=== PATIENT | female | born 1955 | race Hispanic/Latino ===

== ENCOUNTER 2017-08-22 17:02 | Emergency (ER) | payer MEDICARE ==
[2017-08-22 17:22] LABS: BASOPHILS % (AUTO) 0.6 % (0.0-5.0); EOSINOPHILS % (AUTO) 2.8 % (0.0-8.0); HEMATOCRIT 38.5 % (36-48); MEAN CORPUSCULAR HEMOGLOBIN 27.5 pg (27.0-33.0); MEAN CORPUSCULAR HGB CONC 33.3 g/dL (32.0-36.0); MEAN CORPUSCULAR VOLUME 82.5 fL (79-99); NEUTROPHILS % (AUTO) 75.6 % (40.0-77.0); PLATELET COUNT (AUTO) 220 K/uL (130-400); RED BLOOD CELL COUNT(AUTO) 4.66 MIL/uL (4.00-5.50); RED CELL DISTRIBUTION WIDTH 14.2 % (11.0-15.5); WHITE BLOOD COUNT (AUTO) 12.1 K/uL (4.8-10.8)
[2017-08-22 17:34] LABS: CREATININE 0.7 mg/dL (0.5-1.5)
[2017-08-22] MEDS ORDERED: METOCLOPRAMIDE 10 MG TABLET ONE (17:34)
[2017-08-22] MEDS ORDERED: ONDANSETRON HCL 4 MG/2 ML VIAL ONE (17:34)
[2017-08-22] MEDS ORDERED: DiphenhydrAMINE HCL 50 MG/ML VIAL ONE (17:34)
[2017-08-22 17:38] LABS: ALBUMIN 3.3 g/dL (3.5-5.0); BILIRUBIN,TOTAL 0.4 mg/dL (0.2-1.0); TOTAL PROTEIN, SERUM 7.4 g/dL (6.0-8.3)
[2017-08-22] MEDS ORDERED: PREDNISONE 20 MG TABLET ONE (20:08)
== END 2017-08-22 20:36 | disposition home or self-care (01) ==
LOC: EDH 17:02
DX: M31.6 Other giant cell arteritis (principal); M19.90 Unspecified osteoarthritis, unspecified site; E11.9 Type 2 diabetes mellitus without complications; I10 Essential (primary) hypertension; E78.5 Hyperlipidemia, unspecified
CPT/HCPCS: 36415; 80053; 82150; 83690; 84484; 85025; 85651; 86141; 93005; 96374; 96375; 99285; J1200; J2405

== ENCOUNTER → 2018-05-03 | Outpatient (CLI) | payer MEDICARE | END | disposition home or self-care (01) | LOC: SLP 20:33 | PROVIDERS: ATTEND Internal Medicine Cardiovascular Disease | DX: G47.39 Other sleep apnea (principal) | CPT/HCPCS: 95810 ==

== ENCOUNTER → 2018-05-17 | Outpatient (CLI) | payer MEDICARE | END | disposition home or self-care (01) | LOC: SLP 20:42 | PROVIDERS: ATTEND Internal Medicine Cardiovascular Disease | DX: G47.30 Sleep apnea, unspecified (principal) | CPT/HCPCS: 95811 ==

== ENCOUNTER → 2018-11-01 | Outpatient (CLI) | payer MEDICARE | END | disposition home or self-care (01) | LOC: RAH 10:44 | PROVIDERS: ATTEND Family Medicine | DX: Z12.31 Encounter for screening mammogram for malignant neoplasm of breast (principal) | CPT/HCPCS: 77067 ==

== ENCOUNTER 2018-12-06 08:50 | Inpatient (IN) | payer MEDICARE | END 2018-12-08 19:55 | LOC: DAHIP 08:50 → 4AH 15:07 | PROC: 0SRC0JZ Replacement of Right Knee Joint with Synthetic Substitute, Open Approach (ICD-10-PCS; principal; 2018-12-06 12:30) | DX: M17.11 Unilateral primary osteoarthritis, right knee (principal); Z96.651 Presence of right artificial knee joint ==

== ENCOUNTER 2021-03-25 12:33 | Emergency (ER) | payer OTHER, MEDICARE ==
[~2021-03-25] VITALS: Ht 160 cm; Wt 136.1 kg
[~2021-03-25 12:33] MED LIST: APIX2.5T PO; ASPI-556 PO; CHOL100018 PO; GLIP2.5T PO; HYDR-4457 PO; HYDR25TA PO; LOSA50TA64 PO; METF-446 PO; OMEP20CA12 PO; ROSU10TA28 PO
[2021-03-25 12:55] LABS: APPEARANCE,URINE TURBID (CLEAR); BILIRUBIN,URINE MODERATE (NEGATIVE); GLUCOSE, URINE (UA) 100 mg/dL (NEGATIVE); KETONES,URINE 15 mg/dL (NEGATIVE); LEUKOCYTE ESTERASE ,URINE LARGE (NEGATIVE); NITRATE,URINE POSITIVE (NEGATIVE); OCCULT BLOOD,URINE LARGE (NEGATIVE); PH,URINE 6.5 (5.0-8.0); PROTEIN,URINE >=300 mg/dL (NEGATIVE)
[2021-03-25] MEDS ORDERED: PHENAZOPYRIDINE HCL 200 MG TABLET PO PRN (13:00)
[2021-03-25] MEDS ORDERED: CEFTRIAXONE 1G VIAL IM ONE (13:00)
[2021-03-25 13:06] LABS: COLOR,URINE RED (YELLOW)
[2021-03-25 13:07] LABS: RBC,URINE TNTC /HPF (0-1)
[2021-03-25 13:08] LABS: BACTERIA,URINE Few /HPF (None Seen); SQUAMOUS EPITHELIAL CELL,UR Rare /HPF (0-2); WBC,URINE >100 /HPF (0-1)
[2021-03-25] MEDS ORDERED: CEPH500B PO (13:23)
[2021-03-25] MEDS ORDERED: PHEN-847 PO (13:23)
[2021-03-25 13:30] VITALS: BP 148/86
[2021-03-25] MEDS ORDERED: LIDOCAINE HCL-MPF 1% 2ML VIAL ONE (13:30)
== END 2021-03-25 13:40 | disposition home or self-care (01) ==
LOC: EDH 12:33
DX: N39.0 Urinary tract infection, site not specified (principal); I10 Essential (primary) hypertension; E66.9 Obesity, unspecified; E11.9 Type 2 diabetes mellitus without complications; E78.5 Hyperlipidemia, unspecified; Z79.899 Other long term (current) drug therapy; Z68.43 Body mass index [BMI] 50.0-59.9, adult
CPT/HCPCS: 81001; 87077; 87088; 87186; 96372; 99283; J0696; J3490

== ENCOUNTER → 2023-02-02 | Outpatient (CLI) | payer OTHER ==
[~2023-02-02] MED LIST changes: +CEPH500B PO; +PHEN-847 PO
== END | disposition home or self-care (01) ==
LOC: RAH 11:42
PROVIDERS: ATTEND Family Medicine
DX: Z12.31 Encounter for screening mammogram for malignant neoplasm of breast (principal)
CPT/HCPCS: 77067

== ENCOUNTER 2023-08-29 10:59 | Emergency (ER) | payer OTHER ==
[~2023-08-29] VITALS: Ht 160 cm; Wt 126.6 kg
[2023-08-29 11:51] VITALS: BP 121/73; PULSE 109; RESP 16
[2023-08-29 13:40] LABS: APPEARANCE,URINE TURBID (CLEAR); BILIRUBIN,URINE MODERATE mg/dL (NEGATIVE); COLOR,URINE YELLOW (YELLOW); GLUCOSE, URINE (UA) NEGATIVE (NEGATIVE); KETONES,URINE 5 mg/dL (NEGATIVE); LEUKOCYTE ESTERASE ,URINE LARGE Leu/uL (NEGATIVE); NITRATE,URINE NEGATIVE (NEGATIVE); OCCULT BLOOD,URINE LARGE (NEGATIVE); PH,URINE 5.5 (5.0-8.0); PROTEIN,URINE 100 mg/dL (NEGATIVE)
[2023-08-29] MEDS ORDERED: AMOX1TAB16 PO (13:41)
[2023-08-29] MEDS ORDERED: IBUP-2077 PO (13:41)
[2023-08-29] MEDS ORDERED: PHEN-776 PO (13:41)
[2023-08-29 14:02] LABS: ADD UA MICROSCOPIC YES
[2023-08-29 14:03] LABS: BACTERIA,URINE MANY /HPF (None Seen); RBC,URINE TNTC /HPF (0-1); WBC,URINE TNTC /HPF (0-1)
[2023-08-29] MEDS: ACETAMINOPHEN 500 MG TABLET PO ONE (14:55)
[2023-08-29] MEDS: AMOX/CLAV 875/125MG TAB PO ONE (14:55)
== END 2023-08-29 14:56 | disposition home or self-care (01) ==
LOC: EDH 10:59
DX: N30.01 Acute cystitis with hematuria (principal); E11.9 Type 2 diabetes mellitus without complications; E66.9 Obesity, unspecified; E78.00 Pure hypercholesterolemia, unspecified; I10 Essential (primary) hypertension; Z79.01 Long term (current) use of anticoagulants; Z79.82 Long term (current) use of aspirin; Z79.84 Long term (current) use of oral hypoglycemic drugs; Z79.899 Other long term (current) drug therapy
CPT/HCPCS: 81001; 87077; 87088; 87186

== ENCOUNTER 2023-12-19 01:53 | Emergency (ER) | payer OTHER ==
[~2023-12-19] VITALS: Ht 160 cm; Wt 127.0 kg
[~2023-12-19 01:53] MED LIST changes: +AMOX1TAB16 PO; +IBUP-2077 PO; +PHEN-776 PO; -ROSU10TA28 PO; +ROSU10TA72 PO
[2023-12-19 02:36] LABS: APPEARANCE,URINE CLOUDY (CLEAR); BILIRUBIN,URINE NEGATIVE (NEGATIVE); COLOR,URINE LIGHT-YELLOW (YELLOW); GLUCOSE, URINE (UA) NEGATIVE (NEGATIVE); KETONES,URINE NEGATIVE (NEGATIVE); LEUKOCYTE ESTERASE ,URINE 500 Leu/uL (NEGATIVE); MUCUS,URINE RARE LPF (None Seen); NITRATE,URINE NEGATIVE (NEGATIVE); OCCULT BLOOD,URINE LARGE (NEGATIVE); PH,URINE 5.5 (5.0-8.0); PROTEIN,URINE 30 mg/dL (NEGATIVE); RBC,URINE 51-100 /HPF (0-1); SQUAMOUS EPITHELIAL CELL,UR MOD /HPF (0-2); UROBILINOGEN,URINE 0.2 mg/dL (0.2-1.0); WBC,URINE >100 /HPF (0-1)
[2023-12-19 02:54] LABS: BASOPHILS # (AUTO) 0.06 K/uL (0.00-0.20); BASOPHILS % (AUTO) 0.5 % (0.0-5.0); EOSINOPHILS # (AUTO) 0.23 K/uL (0.00-0.70); EOSINOPHILS % (AUTO) 1.9 % (0.0-8.0); HEMATOCRIT 40.3 % (36-48); IMMATURE GRANULOCYTE ABSOLUTE 0.04 K/uL (0-1); LYMPHOCYTES # (AUTO) 1.8 K/uL (1.0-4.8); MEAN CORPUSCULAR HEMOGLOBIN 28.5 pg (27.0-33.0); MEAN CORPUSCULAR VOLUME 86.5 fL (79-99); MONOCYTES # (AUTO) 0.5 K/uL (0.1-1.0); MONOCYTES % (AUTO) 4.3 % (3.0-13.0); NEUTROPHILS # (AUTO) 9.2 K/uL (1.8-7.7); PLATELET COUNT (AUTO) 228 K/uL (130-400); RED BLOOD CELL COUNT(AUTO) 4.66 MIL/uL (4.00-5.50); RED CELL DISTRIBUTION WIDTH 13.3 % (11.0-15.5); WHITE BLOOD COUNT (AUTO) 11.8 K/uL (4.8-10.8)
[2023-12-19 03:06] LABS: CREATININE 1.5 mg/dL (0.5-1.0)
[2023-12-19 03:11] LABS: ALBUMIN 3.6 g/dL (3.5-5.0); BILIRUBIN,TOTAL 0.4 mg/dL (0.2-1.0); TOTAL PROTEIN, SERUM 7.9 g/dL (6.0-8.3)
[2023-12-19] MEDS: HYDROMORPHONE 1 MG INJ IVP ONE (04:26)
[2023-12-19] MEDS: INSULIN GLARGINE 100 UNITS/ML 10 ML VIAL SQ ONE (05:12)
[2023-12-19 05:59] VITALS: BP 168/69; PULSE 66; RESP 18; O2SAT 97
== END 2023-12-19 06:01 | disposition home or self-care (01) ==
LOC: EDH 01:53
DX: K59.01 Slow transit constipation (principal); E66.9 Obesity, unspecified; I10 Essential (primary) hypertension; E11.9 Type 2 diabetes mellitus without complications; M19.90 Unspecified osteoarthritis, unspecified site; Z79.82 Long term (current) use of aspirin; Z79.84 Long term (current) use of oral hypoglycemic drugs; Z79.899 Other long term (current) drug therapy; Z98.890 Other specified postprocedural states
CPT/HCPCS: 99285; 74176; 96374; 80053; 83690; 85025; 87077; 87088; 87186; 82948; 81001 ×2; 36415; J1170

== ENCOUNTER 2023-12-20 20:43 | Inpatient (IN) | payer OTHER ==
[~2023-12-20] VITALS: Ht 160 cm; Wt 125.1 kg
[2023-12-20 21:09] LABS: BASOPHILS # (AUTO) 0.04 K/uL (0.00-0.20); BASOPHILS % (AUTO) 0.3 % (0.0-5.0); EOSINOPHILS # (AUTO) 0.02 K/uL (0.00-0.70); EOSINOPHILS % (AUTO) 0.2 % (0.0-8.0); HEMATOCRIT 40.3 % (36-48); IMMATURE GRANULOCYTE ABSOLUTE 0.05 K/uL (0-1); LYMPHOCYTES # (AUTO) 2.2 K/uL (1.0-4.8); LYMPHOCYTES % (AUTO) 18.8 % (21.0-51.0); MEAN CORPUSCULAR HEMOGLOBIN 28.7 pg (27.0-33.0); MEAN CORPUSCULAR HGB CONC 32.8 g/dL (32.0-36.0); MEAN CORPUSCULAR VOLUME 87.6 fL (79-99); MONOCYTES # (AUTO) 0.1 K/uL (0.1-1.0); NEUTROPHILS # (AUTO) 9.2 K/uL (1.8-7.7); NEUTROPHILS % (AUTO) 79.3 % (40.0-77.0); PLATELET COUNT (AUTO) 208 K/uL (130-400); RED CELL DISTRIBUTION WIDTH 13.6 % (11.0-15.5); WHITE BLOOD COUNT (AUTO) 11.6 K/uL (4.8-10.8)
[2023-12-20] MEDS: ACETAMINOPHEN 500 MG TABLET PO STA (21:12)
[2023-12-20 21:22] LABS: CREATININE 1.3 mg/dL (0.5-1.0); POTASSIUM 4.6 mmol/L (3.5-5.1)
[2023-12-20] MEDS: 0.9%NACL 1000ML 1,572 ML IV ONE (21:31)
[2023-12-20 21:32] LABS: APPEARANCE,URINE CLOUDY (CLEAR); BILIRUBIN,URINE NEGATIVE (NEGATIVE); COLOR,URINE YELLOW (YELLOW); GLUCOSE, URINE (UA) 50 mg/dL (NEGATIVE); KETONES,URINE 5 mg/dL (NEGATIVE); LEUKOCYTE ESTERASE ,URINE 500 Leu/uL (NEGATIVE); NITRATE,URINE NEGATIVE (NEGATIVE); OCCULT BLOOD,URINE LARGE (NEGATIVE); PROTEIN,URINE 300 mg/dL (NEGATIVE); UROBILINOGEN,URINE 0.2 mg/dL (0.2-1.0)
[2023-12-20 21:36] LABS: ALBUMIN 3.2 g/dL (3.5-5.0); BILIRUBIN,TOTAL 1.3 mg/dL (0.2-1.0); TOTAL PROTEIN, SERUM 7.9 g/dL (6.0-8.3)
[2023-12-20 21:37] LABS: ADD UA MICROSCOPIC YES
[2023-12-20 21:51] LABS: MUCUS,URINE RARE LPF (None Seen); OTHER CASTS, URINE 3 /LPF (None Seen); RBC,URINE TNTC /HPF (0-1); SQUAMOUS EPITHELIAL CELL,UR RARE /HPF (0-2); WBC,URINE TNTC /HPF (0-1)
[2023-12-20] MEDS ORDERED: VANCOMYCIN PROTOCOL PER PHARMACY IV SCH (23:30)
[2023-12-20 23:46] LABS: ABG BASE EXCESS -6.4 mmol/L (-2.0-3.0); ABG HCO3 15.3 mmol/L (21.0-28.0); ABG OXYGEN SATURATION 97.4 % (95.0-99.0); ABG PCO2 23 mmHg (32-45); ABG PH 7.449 (7.35-7.450); PO2, ARTERIAL BG 90.7 mmHg (83.0-108.0); VENT MODE, BG NC (ROOM AIR)
[2023-12-20] MEDS: CEFEPIME HCL 2 GM VIAL IVPB SCH (23:48)
[2023-12-20] MEDS: 0.9%NACL 1000ML 1,000 ML IV SCH (23:55)
[2023-12-21] VITALS (55 sets, daily range): BP systolic 86–157; BP diastolic 36–101; PULSE 71–139; RESP 16–67; O2SAT 95–98
[2023-12-21] MEDS ORDERED: PHARMACY COMMUNICATION MISC SCH
[2023-12-21] MEDS: VANCOMYCIN 1.5 GM/250 ML BAG 250 ML IV SCH (00:10)
[2023-12-21] MEDS: INSULIN REGULAR, HUMAN 3ML 100 UNIT in 0.9%NACL 100ML 100 ML IV SCH (00:15)
[2023-12-21 00:33] LABS: CREATININE 1.9 mg/dL (0.5-1.0); POTASSIUM 3.1 mmol/L (3.5-5.1)
[2023-12-21] MEDS: VANCOMYCIN 2GM/500 ML BAG 500 ML IV ONE (00:50)
[2023-12-21 01:19] LABS: INFLUENZA TYPE A Negative For Type A (NEGATIVE); INFLUENZA TYPE B Negative For Type B (NEGATIVE)
[2023-12-21] MEDS: POTASSIUM CHLORIDE 10MEQ/100ML 100 ML IV PRN (01:34)
[2023-12-21 01:54] LABS: SARS-CoV-2, RNA, NAAT NEGATIVE SARS CoV-2 (NEGATIVE)
[2023-12-21] MEDS ORDERED: PHENYLEPHRINE HCL 10 MG in 0.9% NACL 250ML 250 ML IV PRN (02:00)
[2023-12-21] MEDS: D5W-1/2 NS/20MEQ KCL 1,000 ML IV SCH (02:50)
[2023-12-21 03:46] LABS: POTASSIUM 3.3 mmol/L (3.5-5.1)
[2023-12-21] MEDS: MAGNESIUM 2GM PREMIX 50ML 50 ML IV SCH (04:00)
[2023-12-21] MEDS ORDERED: POTASSIUM CHLORIDE 10MEQ/100ML 100 ML IV PRN (04:30)
[2023-12-21] MEDS ORDERED: TEMAZEPAM 15 MG CAPSULE PO PRN (05:30)
[2023-12-21] MEDS ORDERED: LACTULOSE 20 GM/30 ML UDCUP PO PRN (05:30)
[2023-12-21] MEDS ORDERED: DOCUSATE SODIUM 100 MG CAP PO PRN (05:30)
[2023-12-21] MEDS ORDERED: ACETAMINOPHEN 650 MG SUPPOSITORY RC PRN (05:30)
[2023-12-21 06:04] LABS: BASOPHILS # (AUTO) 0.06 K/uL (0.00-0.20); BASOPHILS % (AUTO) 0.3 % (0.0-5.0); EOSINOPHILS # (AUTO) 0.01 K/uL (0.00-0.70); EOSINOPHILS % (AUTO) 0.1 % (0.0-8.0); HEMATOCRIT 34.7 % (36-48); IMMATURE GRANULOCYTE ABSOLUTE 0.24 K/uL (0-1); LYMPHOCYTES # (AUTO) 0.7 K/uL (1.0-4.8); LYMPHOCYTES % (AUTO) 3.5 % (21.0-51.0); MEAN CORPUSCULAR HEMOGLOBIN 28.5 pg (27.0-33.0); MEAN CORPUSCULAR HGB CONC 32.3 g/dL (32.0-36.0); MEAN CORPUSCULAR VOLUME 88.3 fL (79-99); MONOCYTES # (AUTO) 1.3 K/uL (0.1-1.0); MONOCYTES % (AUTO) 6.8 % (3.0-13.0); NEUTROPHILS # (AUTO) 17.2 K/uL (1.8-7.7); NEUTROPHILS % (AUTO) 88.1 % (40.0-77.0); PLATELET COUNT (AUTO) 159 K/uL (130-400); RED BLOOD CELL COUNT(AUTO) 3.93 MIL/uL (4.00-5.50); RED CELL DISTRIBUTION WIDTH 13.7 % (11.0-15.5); WHITE BLOOD COUNT (AUTO) 19.6 K/uL (4.8-10.8)
[2023-12-21 06:19] LABS: WBC MORPHOLOGY CONSISTENT W/DIFF
[2023-12-21 06:23] LABS: MAGNESIUM 1.2 mg/dL (1.80-2.40); PHOSPHORUS 1.6 mg/dL (2.5-4.9); THYROID STIMULATING HORMONE 3.42 uIU/mL (0.36-3.74)
[2023-12-21] MEDS: ASPIRIN 81MG CHEW TAB PO SCH (07:59)
[2023-12-21] MEDS: ENOXAPARIN SODIUM 40 MG/0.4 ML SYRINGE SQ SCH (08:01)
[2023-12-21 08:21] LABS: CREATININE 1.8 mg/dL (0.5-1.0); POTASSIUM 4.3 mmol/L (3.5-5.1)
[2023-12-21] MEDS ORDERED: COMPOUND IV MISC 1 EACH IVSOLN MISC PRN (08:30)
[2023-12-21] MEDS ORDERED: COMPOUND IV REFRIGERATED 1 EACH IVSOLN MISC PRN (08:30)
[2023-12-21] MEDS: 0.9%NACL 1000ML 525 ML IV ONE (09:02)
[2023-12-21] MEDS: INSULIN GLARGINE 100 UNITS/ML 10 ML VIAL SQ SCH (09:02)
[2023-12-21] MEDS: MEROPENEM 1 GM in 0.9%NACL 100ML 100 ML IV SCH (09:10)
[2023-12-21] MEDS: INSULIN HUMULIN R 100 UNIT/ML 3ML SQ SCH (11:59)
[2023-12-21] MEDS: ONDANSETRON 4MG INJ IVP PRN (13:16)
[2023-12-21] MEDS: ACETAMINOPHEN 325 MG TAB PO PRN ×2 (13:33→23:00)
[2023-12-21 13:57] LABS: ABG BASE EXCESS -8.7 mmol/L (-2.0-3.0); ABG HCO3 14.1 mmol/L (21.0-28.0); ABG OXYGEN SATURATION 94.5 % (95.0-99.0); ABG PCO2 23 mmHg (32-45); ABG PH 7.401 (7.35-7.450); CARBON MONOXIDE 0.5; HHb 5.5; PO2, ARTERIAL BG 72.3 mmHg (83.0-108.0); VENT MODE, BG NC (ROOM AIR)
[2023-12-21] MEDS: 0.9%NACL 1000ML 1,000 ML IV ONE (14:34)
[2023-12-21] MEDS: INSULIN REGULAR, HUMAN 3ML 100 UNIT in 0.9%NACL 100ML 99 ML IV SCH (14:37)
[2023-12-21 19:00] LABS: CREATININE 1.6 mg/dL (0.5-1.0); POTASSIUM 4.2 mmol/L (3.5-5.1)
[2023-12-21 22:43] LABS: ABG BASE EXCESS -12.4 mmol/L (-2.0-3.0); ABG HCO3 15.1 mmol/L (21.0-28.0); ABG PCO2 40 mmHg (32-45); ABG PH 7.195 (7.35-7.450); CARBON MONOXIDE 0.3; PO2, ARTERIAL BG 209.9 mmHg (83.0-108.0); VENT MODE, BG NRB (ROOM AIR)
[2023-12-21 22:50] LABS: CREATININE 1.7 mg/dL (0.5-1.0)
[2023-12-21] MEDS: SODIUM BICARB 50MEQ 50ML VIAL IV ONE (23:30)
[2023-12-22] VITALS (63 sets, daily range): BP systolic 80–177; BP diastolic 32–115; PULSE 83–131; RESP 8–37; O2SAT 98–99
[2023-12-22] MEDS: SODIUM BICARB 50MEQ 50ML VIAL 100 ML ONE (00:36)
[2023-12-22 00:58] LABS: ABG BASE EXCESS -6.3 mmol/L (-2.0-3.0); ABG HCO3 17.1 mmol/L (21.0-28.0); ABG OXYGEN SATURATION 95.6 % (95.0-99.0); ABG PCO2 28 mmHg (32-45); ABG PH 7.403 (7.35-7.450); CARBON MONOXIDE 0.2; HHb 4.4; PO2, ARTERIAL BG 82.8 mmHg (83.0-108.0); VENT MODE, BG NC (ROOM AIR)
[2023-12-22] MEDS: KETOROLAC 30MG VIAL (30MG/ML) IVP ONE (01:10)
[2023-12-22 02:58] LABS: CREATININE 1.7 mg/dL (0.5-1.0); POTASSIUM 4.1 mmol/L (3.5-5.1)
[2023-12-22 06:49] LABS: CREATININE 1.6 mg/dL (0.5-1.0); POTASSIUM 5.3 mmol/L (3.5-5.1)
[2023-12-22 08:14] LABS: BASOPHILS # (AUTO) 0.04 K/uL (0.00-0.20); BASOPHILS % (AUTO) 0.3 % (0.0-5.0); EOSINOPHILS # (AUTO) 0.02 K/uL (0.00-0.70); EOSINOPHILS % (AUTO) 0.2 % (0.0-8.0); HEMATOCRIT 35.4 % (36-48); IMMATURE GRANULOCYTE ABSOLUTE 0.07 K/uL (0-1); LYMPHOCYTES # (AUTO) 0.6 K/uL (1.0-4.8); LYMPHOCYTES % (AUTO) 4.9 % (21.0-51.0); MEAN CORPUSCULAR HEMOGLOBIN 28.3 pg (27.0-33.0); MEAN CORPUSCULAR HGB CONC 32.2 g/dL (32.0-36.0); MEAN CORPUSCULAR VOLUME 87.8 fL (79-99); MONOCYTES # (AUTO) 1.1 K/uL (0.1-1.0); MONOCYTES % (AUTO) 8.7 % (3.0-13.0); NEUTROPHILS # (AUTO) 11.1 K/uL (1.8-7.7); NEUTROPHILS % (AUTO) 85.4 % (40.0-77.0); PLATELET COUNT (AUTO) 104 K/uL (130-400); RED BLOOD CELL COUNT(AUTO) 4.03 MIL/uL (4.00-5.50)
[2023-12-22 08:31] LABS: ALBUMIN 2.2 g/dL (3.5-5.0); BILIRUBIN,DIRECT 0.3 mg/dL (0.0-0.3); BILIRUBIN,TOTAL 0.7 mg/dL (0.2-1.0); TOTAL PROTEIN, SERUM 6.4 g/dL (6.0-8.3)
[2023-12-22 11:24] LABS: CREATININE 1.5 mg/dL (0.5-1.0); POTASSIUM 4.6 mmol/L (3.5-5.1)
[2023-12-22] MEDS: INSULIN HUMULIN R 100 UNIT/ML 3ML SQ SCH (11:25)
[2023-12-22 15:20] LABS: CREATININE 1.4 mg/dL (0.5-1.0); POTASSIUM 4.5 mmol/L (3.5-5.1)
[2023-12-22 17:40] LABS: CREATININE,URINE RANDOM 118.7 mg/dL (30-135)
[2023-12-22] MEDS ORDERED: ASPI-1197 PO (18:32)
[2023-12-22] MEDS ORDERED: HYDR25TA PO (18:32)
[2023-12-22] MEDS ORDERED: OMEG12002 PO (18:32)
[2023-12-22] MEDS ORDERED: ROSU10TA72 PO (18:32)
[2023-12-22] MEDS ORDERED: LOSA100T59 PO (18:32)
[2023-12-22] MEDS ORDERED: NAPR-1141 PO (18:32)
[2023-12-22] MEDS ORDERED: ACET-2893 PO (18:32)
[2023-12-22] MEDS ORDERED: GLIP-162 PO (18:32)
[2023-12-22] MEDS ORDERED: MULT12TA PO (18:32)
[2023-12-22] MEDS ORDERED: METF-446 PO (18:32)
[2023-12-22 19:38] LABS: CREATININE 1.3 mg/dL (0.5-1.0); POTASSIUM 4.1 mmol/L (3.5-5.1)
[2023-12-22 23:22] LABS: CREATININE 1.2 mg/dL (0.5-1.0); POTASSIUM 4.1 mmol/L (3.5-5.1)
[2023-12-23] VITALS (69 sets, daily range): BP systolic 94–160; BP diastolic 39–100; PULSE 76–160; RESP 14–36; TEMP 98.3; O2SAT 96–100
[2023-12-23 05:15] LABS: HEMATOCRIT 34.1 % (36-48); MEAN CORPUSCULAR HEMOGLOBIN 28.2 pg (27.0-33.0); MEAN CORPUSCULAR VOLUME 88.3 fL (79-99); PLATELET COUNT (AUTO) 124 K/uL (130-400); RED BLOOD CELL COUNT(AUTO) 3.86 MIL/uL (4.00-5.50); RED CELL DISTRIBUTION WIDTH 14.1 % (11.0-15.5); WHITE BLOOD COUNT (AUTO) 12.4 K/uL (4.8-10.8)
[2023-12-23 05:38] LABS: POTASSIUM 5.1 mmol/L (3.5-5.1)
[2023-12-23 06:35] LABS: BAND NEUTROPHILS % (MANUAL) 22 % (0-2); EOSINOPHILS % (MANUAL) 1 % (1-6); LYMPHOCYTES % (MANUAL) 2 % (22-44); MONOCYTES % (MANUAL) 2 % (2-9); SEGMENTED NEUTROPHILS % 73 % (40-70); TOTAL CELLS COUNTED 100
[2023-12-23 06:36] LABS: MAN.DIFF COMMENT-IMPRESSION MANUAL DIFFERENTIAL; PLATELET MORPHOLOGY COMMENT ADEQUATE; WBC MORPHOLOGY VACUOLATION 1+
[2023-12-23 07:16] LABS: PROTEIN,URINE RANDOM 86.8 mg/dL (0-11.9)
[2023-12-23 08:53] LABS: APPEARANCE,URINE CLOUDY (CLEAR); BILIRUBIN,URINE NEGATIVE (NEGATIVE); COLOR,URINE YELLOW (YELLOW); GLUCOSE, URINE (UA) NEGATIVE (NEGATIVE); KETONES,URINE 10 mg/dL (NEGATIVE); LEUKOCYTE ESTERASE ,URINE 250 Leu/uL (NEGATIVE); NITRATE,URINE NEGATIVE (NEGATIVE); OCCULT BLOOD,URINE MODERATE (NEGATIVE); PH,URINE 5.5 (5.0-8.0); PROTEIN,URINE 30 mg/dL (NEGATIVE); UROBILINOGEN,URINE 0.2 mg/dL (0.2-1.0)
[2023-12-23 08:56] LABS: ADD UA MICROSCOPIC YES
[2023-12-23 09:49] LABS: BACTERIA,URINE Rare /HPF (None Seen); SQUAMOUS EPITHELIAL CELL,UR Rare /HPF (0-2); WBC,URINE 0-1 /HPF (0-1)
[2023-12-23] MEDS ORDERED: MAGNESIUM 2GM PREMIX 50ML 50 ML IV PRN (10:00)
[2023-12-23 11:14] LABS: ABG BASE EXCESS -6.4 mmol/L (-2.0-3.0); ABG HCO3 16.7 mmol/L (21.0-28.0); ABG OXYGEN SATURATION 98.6 % (95.0-99.0); ABG PCO2 27 mmHg (32-45); ABG PH 7.411 (7.35-7.450); CARBON MONOXIDE 0.3; DEVICE COMMENT RR, MARY,RN; HHb 1.4; PO2, ARTERIAL BG 132.9 mmHg (83.0-108.0); VENT MODE, BG NRBM (ROOM AIR)
[2023-12-23 12:05] LABS: INR 0.98 (0.85-1.15); PARTIAL THROMBOPLASTIN TIME 28.6 SEC (26.3-35.5); PROTHROMBIN TIME 10.4 SEC (9.6-11.6)
[2023-12-23] MEDS: SODIUM BICARB 50MEQ 50ML VIAL IV ONE (12:22)
[2023-12-23] MEDS: METOPROLOL TARTRATE 1 MG/ML 5ML VIAL IV ONE (13:00)
[2023-12-23] MEDS ORDERED: METOPROLOL TARTRATE 1 MG/ML 5ML VIAL IV PRN (13:00)
[2023-12-23] MEDS: FUROSEMIDE 20MG VIAL IV STA (13:01)
[2023-12-23] MEDS: CEFTRIAXONE 2GM VIAL IVPB SCH (13:02)
[2023-12-23 14:35] LABS: INR 1.45 (0.85-1.15); PARTIAL THROMBOPLASTIN TIME 51.1 SEC (26.3-35.5)
[2023-12-23] MEDS ORDERED: IOHEXOL 350 MG/ML 100ML INFUS..BTL IV ONE (23:57)
[2023-12-24] VITALS (39 sets, daily range): BP systolic 74–149; BP diastolic 31–86; PULSE 69–90; RESP 11–28; O2SAT 96–99
[2023-12-24 04:43] LABS: HEMATOCRIT 31.2 % (36-48); MEAN CORPUSCULAR HEMOGLOBIN 27.8 pg (27.0-33.0); MEAN CORPUSCULAR HGB CONC 32.7 g/dL (32.0-36.0); RED BLOOD CELL COUNT(AUTO) 3.67 MIL/uL (4.00-5.50); RED CELL DISTRIBUTION WIDTH 13.9 % (11.0-15.5); WHITE BLOOD COUNT (AUTO) 7.8 K/uL (4.8-10.8)
[2023-12-24 05:13] LABS: ALBUMIN 1.8 g/dL (3.5-5.0); BILIRUBIN,TOTAL 0.4 mg/dL (0.2-1.0); CREATININE 1.2 mg/dL (0.5-1.0); PHOSPHORUS 3.1 mg/dL (2.5-4.9); TOTAL PROTEIN, SERUM 5.8 g/dL (6.0-8.3)
[2023-12-24] MEDS: 0.9%NACL 10ML VIAL IV SCH (09:00)
[2023-12-24] MEDS: MEROPENEM 1 GM in 0.9%NACL 100ML 100 ML IV SCH (14:30)
[2023-12-24] MEDS: FUROSEMIDE 20 MG TABLET PO SCH (19:29)
[2023-12-25] VITALS (12 sets, daily range): BP systolic 123–146; BP diastolic 68–80; PULSE 71–89; RESP 16–23; O2SAT 96–99
[2023-12-25 04:30] LABS: BASOPHILS # (AUTO) 0.02 K/uL (0.00-0.20); BASOPHILS % (AUTO) 0.2 % (0.0-5.0); EOSINOPHILS # (AUTO) 0.08 K/uL (0.00-0.70); EOSINOPHILS % (AUTO) 0.8 % (0.0-8.0); HEMATOCRIT 30.3 % (36-48); IMMATURE GRANULOCYTE ABSOLUTE 0.06 K/uL (0-1); LYMPHOCYTES # (AUTO) 0.9 K/uL (1.0-4.8); LYMPHOCYTES % (AUTO) 8.8 % (21.0-51.0); MEAN CORPUSCULAR HEMOGLOBIN 28.3 pg (27.0-33.0); MEAN CORPUSCULAR HGB CONC 32.7 g/dL (32.0-36.0); MEAN CORPUSCULAR VOLUME 86.6 fL (79-99); MONOCYTES # (AUTO) 1.1 K/uL (0.1-1.0); NEUTROPHILS # (AUTO) 7.6 K/uL (1.8-7.7); NEUTROPHILS % (AUTO) 78.6 % (40.0-77.0); PLATELET COUNT (AUTO) 94 K/uL (130-400); WHITE BLOOD COUNT (AUTO) 9.7 K/uL (4.8-10.8)
[2023-12-25 04:57] LABS: ALBUMIN 1.7 g/dL (3.5-5.0); BILIRUBIN,TOTAL 0.5 mg/dL (0.2-1.0); CREATININE 1.1 mg/dL (0.5-1.0); POTASSIUM 3.3 mmol/L (3.5-5.1); TOTAL PROTEIN, SERUM 5.7 g/dL (6.0-8.3)
[2023-12-25] MEDS: PANTOPRAZOLE 40 MG/VIAL IVP SCH (10:11)
[2023-12-25] MEDS: POTASSIUM CHLORIDE 10% ELIXIR 20 MEQ/15 ML UDCUP PO PRN (10:21)
[2023-12-25 12:29] LABS: CHOLESTEROL 105 mg/dL (<200); HDL CHOLESTEROL 19 mg/dL (35-85); LDL DIRECT 51 mg/dL (0-99); TRIGLYCERIDES 193 mg/dL (30-200)
[2023-12-25] MEDS: KCL 20 MEQ ERTAB PO PRN (21:38)
[2023-12-26] VITALS (12 sets, daily range): BP systolic 125–158; BP diastolic 58–73; PULSE 71–82; RESP 16–23; O2SAT 94–98
[2023-12-26 06:33] LABS: HEMATOCRIT 29.6 % (36-48); MEAN CORPUSCULAR HEMOGLOBIN 28.3 pg (27.0-33.0); MEAN CORPUSCULAR HGB CONC 33.8 g/dL (32.0-36.0); MEAN CORPUSCULAR VOLUME 83.9 fL (79-99); RED BLOOD CELL COUNT(AUTO) 3.53 MIL/uL (4.00-5.50); WHITE BLOOD COUNT (AUTO) 8.8 K/uL (4.8-10.8)
[2023-12-26 06:46] LABS: MAGNESIUM 1.4 mg/dL (1.80-2.40); PHOSPHORUS 3.1 mg/dL (2.5-4.9); POTASSIUM 3.8 mmol/L (3.5-5.1)
[2023-12-26] MEDS: MAGNESIUM OXIDE 400 MG TABLET PO SCH (21:38)
[2023-12-27] VITALS (12 sets, daily range): BP systolic 139–156; BP diastolic 66–79; PULSE 69–92; RESP 18–20; O2SAT 93–99
[2023-12-27 05:35] LABS: BASOPHILS # (AUTO) 0.06 K/uL (0.00-0.20); BASOPHILS % (AUTO) 0.6 % (0.0-5.0); EOSINOPHILS # (AUTO) 0.18 K/uL (0.00-0.70); EOSINOPHILS % (AUTO) 1.8 % (0.0-8.0); HEMATOCRIT 31.2 % (36-48); LYMPHOCYTES % (AUTO) 20.7 % (21.0-51.0); MEAN CORPUSCULAR HEMOGLOBIN 28.3 pg (27.0-33.0); MEAN CORPUSCULAR HGB CONC 32.7 g/dL (32.0-36.0); MEAN CORPUSCULAR VOLUME 86.7 fL (79-99); MONOCYTES # (AUTO) 0.8 K/uL (0.1-1.0); MONOCYTES % (AUTO) 7.8 % (3.0-13.0); NEUTROPHILS # (AUTO) 6.5 K/uL (1.8-7.7); PLATELET COUNT (AUTO) 135 K/uL (130-400); RED CELL DISTRIBUTION WIDTH 13.7 % (11.0-15.5); WHITE BLOOD COUNT (AUTO) 9.8 K/uL (4.8-10.8)
[2023-12-27 06:09] LABS: ALBUMIN 1.7 g/dL (3.5-5.0); BILIRUBIN,TOTAL 0.5 mg/dL (0.2-1.0); MAGNESIUM 1.6 mg/dL (1.80-2.40); POTASSIUM 3.9 mmol/L (3.5-5.1)
[2023-12-27 06:23] LABS: EOSINOPHILS % (MANUAL) 2 % (1-6); LYMPHOCYTES % (MANUAL) 32 % (22-44); MAN.DIFF COMMENT-IMPRESSION MANUAL DIFFERENTIAL; MONOCYTES % (MANUAL) 2 % (2-9); SEGMENTED NEUTROPHILS % 64 % (40-70); TOTAL CELLS COUNTED 100
[2023-12-27 06:24] LABS: PLATELET MORPHOLOGY COMMENT ADEQUATE; WBC MORPHOLOGY NORMAL
[2023-12-27 08:51] LABS: ABG BASE EXCESS 3.3 mmol/L (-2.0-3.0); ABG HCO3 26.2 mmol/L (21.0-28.0); ABG OXYGEN SATURATION 93.9 % (95.0-99.0); ABG PCO2 35 mmHg (32-45); ABG PH 7.495 (7.35-7.450); DEVICE COMMENT RR; PO2, ARTERIAL BG 62.9 mmHg (83.0-108.0); VENT MODE, BG ROOM AIR (ROOM AIR)
[2023-12-28] VITALS (8 sets, daily range): BP systolic 134–158; BP diastolic 66–93; PULSE 66–86; RESP 17–20; O2SAT 95–100
[2023-12-28 06:02] LABS: HEMATOCRIT 30.5 % (36-48); MEAN CORPUSCULAR HEMOGLOBIN 27.9 pg (27.0-33.0); MEAN CORPUSCULAR HGB CONC 32.5 g/dL (32.0-36.0); MEAN CORPUSCULAR VOLUME 85.9 fL (79-99); PLATELET COUNT (AUTO) 203 K/uL (130-400); RED BLOOD CELL COUNT(AUTO) 3.55 MIL/uL (4.00-5.50); RED CELL DISTRIBUTION WIDTH 13.8 % (11.0-15.5); WHITE BLOOD COUNT (AUTO) 10.6 K/uL (4.8-10.8)
[2023-12-28 06:35] LABS: BASOPHILS % (MANUAL) 1 % (0-2); LYMPHOCYTES % (MANUAL) 21 % (22-44); MONOCYTES % (MANUAL) 3 % (2-9); MYELOCYTES % 1 % (0-0); REACTIVE LYMPHOCYTES 2 % (0-0); SEGMENTED NEUTROPHILS % 72 % (40-70); TOTAL CELLS COUNTED 100
[2023-12-28 06:36] LABS: MAN.DIFF COMMENT-IMPRESSION MANUAL DIFFERENTIAL
[2023-12-28 06:38] LABS: PLATELET MORPHOLOGY COMMENT ADEQUATE
[2023-12-28 06:51] LABS: ALBUMIN 1.8 g/dL (3.5-5.0); BILIRUBIN,TOTAL 0.6 mg/dL (0.2-1.0); CREATININE 1.1 mg/dL (0.5-1.0); MAGNESIUM 1.7 mg/dL (1.80-2.40); POTASSIUM 3.9 mmol/L (3.5-5.1); TOTAL PROTEIN, SERUM 6.2 g/dL (6.0-8.3)
[2023-12-29] VITALS (20 sets, daily range): BP systolic 123–148; BP diastolic 50–79; PULSE 62–99; RESP 16–20; O2SAT 95–100
[2023-12-29 04:10] LABS: BASOPHILS # (AUTO) 0.03 K/uL (0.00-0.20); BASOPHILS % (AUTO) 0.3 % (0.0-5.0); EOSINOPHILS # (AUTO) 0.24 K/uL (0.00-0.70); EOSINOPHILS % (AUTO) 2.1 % (0.0-8.0); HEMATOCRIT 29.5 % (36-48); IMMATURE GRANULOCYTE ABSOLUTE 0.13 K/uL (0-1); LYMPHOCYTES # (AUTO) 1.7 K/uL (1.0-4.8); LYMPHOCYTES % (AUTO) 14.8 % (21.0-51.0); MEAN CORPUSCULAR HEMOGLOBIN 28.2 pg (27.0-33.0); MEAN CORPUSCULAR HGB CONC 32.2 g/dL (32.0-36.0); MEAN CORPUSCULAR VOLUME 87.5 fL (79-99); MONOCYTES # (AUTO) 0.7 K/uL (0.1-1.0); MONOCYTES % (AUTO) 6.2 % (3.0-13.0); NEUTROPHILS # (AUTO) 8.5 K/uL (1.8-7.7); NEUTROPHILS % (AUTO) 75.5 % (40.0-77.0); PLATELET COUNT (AUTO) 212 K/uL (130-400); RED BLOOD CELL COUNT(AUTO) 3.37 MIL/uL (4.00-5.50); WHITE BLOOD COUNT (AUTO) 11.3 K/uL (4.8-10.8)
[2023-12-29 04:29] LABS: ALBUMIN 1.7 g/dL (3.5-5.0); BILIRUBIN,TOTAL 0.5 mg/dL (0.2-1.0); CREATININE 1.1 mg/dL (0.5-1.0); MAGNESIUM 1.7 mg/dL (1.80-2.40); POTASSIUM 3.5 mmol/L (3.5-5.1); TOTAL PROTEIN, SERUM 6.1 g/dL (6.0-8.3)
[2023-12-29 04:45] LABS: B-TYPE NATRIURETIC PEPTIDE 63 pg/mL (0-100)
[2023-12-29] MEDS: LIDOCAINE HCL 2% VISCOUS 15 ML UDCUP PO ONE (07:54)
[2023-12-29] MEDS: FLUMAZENIL 0.1MG/1ML 5ML VIAL IV SCH (08:30)
[2023-12-29] MEDS: MIDAZOLAM HCL 1 MG/ML 2ML VIAL IVP ONE (08:30)
[2023-12-29] MEDS: FENTANYL CITRATE PF 50 MCG/1 ML 2ML VIAL IVP ONE (08:30)
[2023-12-29] MEDS: NALOXONE HCL 1 MG/ML 2ML SYG IV SCH (08:30)
[2023-12-29] MEDS: NALOXONE HCL 0.4 MG/1 ML ML IVP SCH (08:30)
[2023-12-29] MEDS ORDERED: MAGNESIUM 2GM PREMIX 50ML 50 ML IV SCH (10:00)
[2023-12-29] MEDS ORDERED: CEFX2I IV (14:26)
== END 2023-12-29 17:35 | DRG 871 ==
LOC: EDH 20:43 → EDHIP 23:39 → 2CV 12-21 03:04 → 4BH 12-22 16:10 → 2CV 12-23 12:04 → 2CH 12-23 16:40 → 4BH 12-24 14:20
PROVIDERS: ADMIT Internal Medicine Critical Care Medicine; ATTEND Internal Medicine Critical Care Medicine
PROC: 5A09357 Assistance with Respiratory Ventilation, Less than 24 Consecutive Hours, Continuous Positive Airway Pressure (ICD-10-PCS; principal; 2023-12-23)
PROC: 5A09357 Assistance with Respiratory Ventilation, Less than 24 Consecutive Hours, Continuous Positive Airway Pressure (ICD-10-PCS; 2023-12-25)
PROC: 5A09357 Assistance with Respiratory Ventilation, Less than 24 Consecutive Hours, Continuous Positive Airway Pressure (ICD-10-PCS; 2023-12-26)
PROC: 5A09357 Assistance with Respiratory Ventilation, Less than 24 Consecutive Hours, Continuous Positive Airway Pressure (ICD-10-PCS; 2023-12-27)
PROC: 5A09357 Assistance with Respiratory Ventilation, Less than 24 Consecutive Hours, Continuous Positive Airway Pressure (ICD-10-PCS; 2023-12-28)
PROC: B24BZZ4 Ultrasonography of Heart with Aorta, Transesophageal (ICD-10-PCS; 2023-12-29)
DX: A41.50 Gram-negative sepsis, unspecified (principal); E11.10 Type 2 diabetes mellitus with ketoacidosis without coma; R65.21 Severe sepsis with septic shock; J96.01 Acute respiratory failure with hypoxia; I33.0 Acute and subacute infective endocarditis; N30.00 Acute cystitis without hematuria; E66.2 Morbid (severe) obesity with alveolar hypoventilation; N17.9 Acute kidney failure, unspecified; I47.10 Supraventricular tachycardia, unspecified; E87.3 Alkalosis; Z68.42 Body mass index [BMI] 45.0-49.9, adult; A05.9 Bacterial foodborne intoxication, unspecified; E11.22 Type 2 diabetes mellitus with diabetic chronic kidney disease; B96.89 Other specified bacterial agents as the cause of diseases classified elsewhere; K82.8 Other specified diseases of gallbladder; K57.30 Diverticulosis of large intestine without perforation or abscess without bleeding; E78.00 Pure hypercholesterolemia, unspecified; Z20.822 Contact with and (suspected) exposure to COVID-19; N18.32 Chronic kidney disease, stage 3b; I12.9 Hypertensive chronic kidney disease with stage 1 through stage 4 chronic kidney disease, or unspecified chronic kidney disease; K21.9 Gastro-esophageal reflux disease without esophagitis; D64.9 Anemia, unspecified; K76.0 Fatty (change of) liver, not elsewhere classified; E87.70 Fluid overload, unspecified; E87.8 Other disorders of electrolyte and fluid balance, not elsewhere classified; K59.00 Constipation, unspecified; E83.42 Hypomagnesemia; E86.0 Dehydration; N28.1 Cyst of kidney, acquired; Z79.84 Long term (current) use of oral hypoglycemic drugs; Z79.899 Other long term (current) drug therapy; Z83.3 Family history of diabetes mellitus; Z86.39 Personal history of other endocrine, nutritional and metabolic disease
CPT/HCPCS: 36415; 36600; 71045; 71270; 74181; 76376; 76705; 76770; 76830; 80048; 80051; 80053; 80061; 80076; 81001; 82010; 82306; 82435; 82570; 82803; 82947; 82948; 83036; 83605; 83735; 83880; 84100; 84132; 84145; 84156; 84295; 84300; 84443; 85018; 85025; 85027; 85378; 85610; 85730; 86304; 87040; 87077; 87086; 87186; 87635; 87804; 87880; 93005; 93306; 93312; 93325; 93356; 94660; 99291; C1751; C1894; C9113; G0378; J0692; J0696; J1650; J1815; J1885; J1940; J2185; J2250; J2310; J2405; J3010; J3475; J3480; J3490; J7030; Q9967; J3370; S8037

== ENCOUNTER 2024-02-20 05:57 | Day surgery (SDC) | payer OTHER ==
[2024-02-17 11:32] LABS: BASOPHILS # (AUTO) 0.06 K/uL (0.00-0.20); BASOPHILS % (AUTO) 0.7 % (0.0-5.0); EOSINOPHILS # (AUTO) 0.29 K/uL (0.00-0.70); EOSINOPHILS % (AUTO) 3.4 % (0.0-8.0); HEMATOCRIT 36.9 % (36-48); IMMATURE GRANULOCYTE ABSOLUTE 0.03 K/uL (0-1); LYMPHOCYTES # (AUTO) 2.1 K/uL (1.0-4.8); LYMPHOCYTES % (AUTO) 24.5 % (21.0-51.0); MEAN CORPUSCULAR HEMOGLOBIN 27.7 pg (27.0-33.0); MEAN CORPUSCULAR HGB CONC 32.2 g/dL (32.0-36.0); MONOCYTES # (AUTO) 0.4 K/uL (0.1-1.0); NEUTROPHILS # (AUTO) 5.7 K/uL (1.8-7.7); NEUTROPHILS % (AUTO) 66.1 % (40.0-77.0); PLATELET COUNT (AUTO) 224 K/uL (130-400); RED BLOOD CELL COUNT(AUTO) 4.29 MIL/uL (4.00-5.50); RED CELL DISTRIBUTION WIDTH 13.6 % (11.0-15.5); WHITE BLOOD COUNT (AUTO) 8.6 K/uL (4.8-10.8)
[2024-02-17 11:42] VITALS: BP 166/70; PULSE 76; RESP 16
[2024-02-17 12:10] LABS: CREATININE 1.2 mg/dL (0.5-1.0); POTASSIUM 4.2 mmol/L (3.5-5.1)
[~2024-02-20] VITALS: Ht 160 cm; Wt 120.9 kg
[~2024-02-20 05:57] MED LIST changes: +ACET-2247 PO; +AEC81 PO; -AMOX1TAB16 PO; -APIX2.5T PO; -ASPI-556 PO; -CEPH500B PO; -CHOL100018 PO; +CLON0.1T PO; +GLIP-162 PO; -GLIP2.5T PO; -HYDR-4457 PO; -IBUP-2077 PO; +LOSA100T59 PO; -LOSA50TA64 PO; +METO25TA6 PO; +MULT-1250 PO; -OMEP20CA12 PO; +PANT40TA55 PO; -PHEN-776 PO; -PHEN-847 PO
[2024-02-20 06:15] VITALS: BP 185/92; PULSE 65; RESP 16
[2024-02-20] MEDS ORDERED: LIDOCAINE PF 100MG/5ML (2%) SYRINGE 5ML ONE (07:24)
[2024-02-20] MEDS ORDERED: proPOFol 10 MG/ML 20ML VIAL IV ONE (07:24)
[2024-02-20] MEDS ORDERED: GLYCOPYRROLATE 0.2 MG/ML 5 ML VIAL ONE (07:25)
[2024-02-20] MEDS ORDERED: LIDOCAINE HCL 2% VISCOUS 15 ML UDCUP ONE (07:35)
[2024-02-20 09:45] VITALS: BP 112/51; PULSE 68; RESP 18
[2024-02-20 10:45] VITALS: BP 139/46; PULSE 64; RESP 14
== END 2024-02-20 10:50 | disposition home or self-care (01) ==
LOC: DAH 05:57
PROVIDERS: ATTEND Internal Medicine Cardiovascular Disease
DX: I33.0 Acute and subacute infective endocarditis (principal); I10 Essential (primary) hypertension; E11.9 Type 2 diabetes mellitus without complications; I25.10 Atherosclerotic heart disease of native coronary artery without angina pectoris; K21.9 Gastro-esophageal reflux disease without esophagitis; E78.00 Pure hypercholesterolemia, unspecified; G47.33 Obstructive sleep apnea (adult) (pediatric); E66.01 Morbid (severe) obesity due to excess calories; M19.90 Unspecified osteoarthritis, unspecified site; Z96.651 Presence of right artificial knee joint; Z79.82 Long term (current) use of aspirin; Z79.4 Long term (current) use of insulin; Z79.899 Other long term (current) drug therapy; Z68.42 Body mass index [BMI] 45.0-49.9, adult
CPT/HCPCS: 80048; 85025; 36415; 93005; 82948; 93325; 93312; J2001; J3490; A4620; A4215; A4223 ×3; A4657; A7002; A4222; A4221; A4663; A4216; A4606; J2704

== ENCOUNTER 2024-05-23 06:28 | Day surgery (SDC) | payer OTHER ==
--- NOTE | 2024-05-21 10:41 | EKG ---
[facility] Test Date: 2024-05-21 Test Time: 11:32:02 Pat Name: FARHEEN EDWARDS Department: [facility] Room: Gender: F Integration Lead: [id number] : 1955 Requested By: ALEXEI MEEKS Order Number: [id number] Reading MD: Leonid Parker Measurements Intervals Barnes Rate: 62 P: 59 DC: 151 QRS: -7 QRSD: 89 T: 53 QT: 423 QTc: 428 Interpretive Statements Sinus rhythm Inferior infarct, old Compared to ECG 02/17/2024 11:21:29 No significant changes Electronically Signed On 05-21-2024 20:04:16 GEOTHERMAL TECHNICIAN by Leonid Parker Please click the below link to view image of tracing.
[2024-05-21 10:58] VITALS: BP 167/71; PULSE 71; RESP 16; TEMP 97.2
[2024-05-21 10:59] LABS: BASOPHILS # (AUTO) 0.06 K/uL (0.00-0.20); BASOPHILS % (AUTO) 0.6 % (0.0-5.0); EOSINOPHILS # (AUTO) 0.29 K/uL (0.00-0.70); HEMATOCRIT 35.5 % (36-48); IMMATURE GRANULOCYTE ABSOLUTE 0.05 K/uL (0-1); LYMPHOCYTES # (AUTO) 1.9 K/uL (1.0-4.8); LYMPHOCYTES % (AUTO) 19.4 % (21.0-51.0); MEAN CORPUSCULAR HEMOGLOBIN 27.4 pg (27.0-33.0); MEAN CORPUSCULAR VOLUME 88.3 fL (79-99); MONOCYTES # (AUTO) 0.5 K/uL (0.1-1.0); MONOCYTES % (AUTO) 5.1 % (3.0-13.0); NEUTROPHILS # (AUTO) 6.8 K/uL (1.8-7.7); NEUTROPHILS % (AUTO) 71.4 % (40.0-77.0); PLATELET COUNT (AUTO) 232 K/uL (130-400); RED BLOOD CELL COUNT(AUTO) 4.02 MIL/uL (4.00-5.50); RED CELL DISTRIBUTION WIDTH 14.6 % (11.0-15.5); WHITE BLOOD COUNT (AUTO) 9.5 K/uL (4.8-10.8)
[2024-05-21 11:13] LABS: POTASSIUM 4.9 mmol/L (3.5-5.1)
[2024-05-23] VITALS (7 sets, daily range): BP systolic 137–157; BP diastolic 63–68; PULSE 60–69; RESP 14–19; TEMP 97.1–97.4
[~2024-05-23] VITALS: Ht 154.9 cm; Wt 123.9 kg
[~2024-05-23 06:28] MED LIST changes: -ACET-2247 PO
[2024-05-23] MEDS: LIDOCAINE HCL 2% VISCOUS 15 ML UDCUP ONE (07:18)
--- NOTE | 2024-05-23 09:04 | NUR ---
BARRINGTON STARTED AT THIS TIME VSS NAD AT THIS TIME.
--- NOTE | 2024-05-23 09:13 | NUR ---
BARRINGTON FINISHED AT THIS TIME BING SPEARS.
[2024-05-23] MEDS: FENTanyl CITRate PF 50 MCG/1 ML 2ML VIAL IVP ONE (09:24)
[2024-05-23] MEDS: MIDAZOLAM HCL 1 MG/ML 2ML VIAL IVP ONE (09:25)
[2024-05-23] MEDS: 0.9%NACL 1000ML 1,000 ML IV ONE (09:25)
--- NOTE | 2024-05-25 16:35 | HMCSR ---
APPROVED REPORT EXAM: Transesophageal echocardiogram with color flow Doppler. Study Details: Probe: [id number] INDICATION ICD: Rule out endocarditis Reason For Test : Rule out endocarditis. PROCEDURE After obtaining informed consent, patient underwent transesophageal echo in the dypatient room 15. 15 mL 2% Viscous Lidocaine was given as a topical anesthetic prior to the administration of the consc ious sedation. Type of Sedation: Conscious Sedation Sedation was administered by Please refer to medication administration record. . Sedation was achieved with Versed and Fentanyl intravenously. Transesophageal probe was inserted and advanced into esophagus without difficulty by Vamshi Sanchez MD. BARRINGTON was performed and images were obtained, probe was removed without complications. Throughout the procedure, the blood pressure, pulse oximetry, cardiac rhythm, and rate were monitored . The patient tolerated the procedure without adverse effects. Recovery from conscious sedation was une ventful and vital signs were stable. Left Ventricle The left ventricle is normal in size. Normal left ventricular systolic wall motion. Mild concentric l eft ventricular hypertrophy. Left ventricular systolic function is normal, estimated LVEF is > 55%. Right Ventricle The right ventricle is normal size. The right ventricular systolic function is normal. Atria The left atrium is mildly dilated. The right atrium size is normal. Aortic Valve Aortic valve is trileaflet. The leaflets are mildly thickened and calcified. No suspicious masses or vegetations were seen on the aortic valve. Trace aortic regurgitation. There is no aortic valvular st enosis. Mitral Valve The mitral valve is normal in structure and function. No suspicious masses or vegetations were seen o n the mitral valve. Trace mitral regurgitation. There is no mitral valve stenosis. Tricuspid Valve The tricuspid valve is normal in structure and function. Trace tricuspid regurgitation. No obvious ve getations were seen on the tricuspid valve. Pulmonic Valve Pulmonic valve is not well visualized. Great Vessels The aortic root is normal in size. The ascending aorta is normal in size.The descending aorta is norm al in size. Pericardium No pericardial effusion. Conclusion The left atrium is mildly dilated. Mild concentric left ventricular hypertrophy. Normal left ventricular systolic wall motion. Left ventricular systolic function is normal, estimated LVEF is > 55%. Aortic valve is trileaflet. The leaflets are mildly thickened and calcified. No suspicious masses or vegetations were seen on the aortic valve. Trace aortic regurgitation. The mitral valve is normal in structure and function. No suspicious masses or vegetations were seen o n the mitral valve. Trace mitral regurgitation. Trace tricuspid regurgitation. No pericardial effusion. Conclusions: Bacterial endocarditis affecting the aortic valve, s/p treatment with a prolonged course of both IV a nd oral antibiotics, resolved. Normal left ventricle systolic function, LVEF > 55%. Recommendations: Continue goal-directed medical therapy. Follow up with Dr. Bonds in 1-2 weeks.
== END 2024-05-23 10:15 | disposition home or self-care (01) ==
LOC: DAH 06:28
PROVIDERS: ATTEND Internal Medicine Cardiovascular Disease
DX: I33.0 Acute and subacute infective endocarditis (principal); I25.10 Atherosclerotic heart disease of native coronary artery without angina pectoris; G47.33 Obstructive sleep apnea (adult) (pediatric); M19.90 Unspecified osteoarthritis, unspecified site; I10 Essential (primary) hypertension; E11.9 Type 2 diabetes mellitus without complications; E78.00 Pure hypercholesterolemia, unspecified; K21.9 Gastro-esophageal reflux disease without esophagitis; E66.01 Morbid (severe) obesity due to excess calories; Z96.651 Presence of right artificial knee joint; Z90.89 Acquired absence of other organs; Z79.82 Long term (current) use of aspirin; Z68.42 Body mass index [BMI] 45.0-49.9, adult; Z79.84 Long term (current) use of oral hypoglycemic drugs; Z79.899 Other long term (current) drug therapy
CPT/HCPCS: 80048; 85025; 36415; 93005; 82948; 93325; 93312; J3010; J7030; J2250; A4615; A4215; A4223 ×3; A4657; A7002; A4222; A4221; A4663; A4216; A4606; 99152; G0500

== ENCOUNTER → 2025-04-02 | Outpatient (CLI) | payer OTHER ==
[~2025-04-02] MED LIST changes: +CYCL10TA16 PO; -GLIP-162 PO; +GLIP-300 PO; +NAPR-1180 PO; +OXYC-38 PO
== END | disposition home or self-care (01) ==
LOC: RAH 08:38
PROVIDERS: ATTEND Family Medicine
DX: Z12.31 Encounter for screening mammogram for malignant neoplasm of breast (principal)
CPT/HCPCS: 77067

== ENCOUNTER 2025-06-01 11:14 | Emergency (ER) | payer OTHER ==
[~2025-06-01] VITALS: Ht 157.5 cm; Wt 119.3 kg
[~2025-06-01 11:14] MED LIST changes: -ROSU10TA72 PO; +ROSU10TA98 PO
--- NOTE | 2025-06-01 12:21 | ERN ---
General Chief Complaint: Mechanical Fall Stated Complaint: FALL Time Seen by MD: 11:19 Source: patient History of Present Illness Initial Comments PATIENT IS A 69-YEAR-OLD FEMALE COMING IN COMPLAINING OF KNEE PAIN. PER PATIENT SHE SLIPPED ON HER SANDALS LANDED ON BOTH KNEES. SHE STATES THAT THE LEFT KNEE HAS MORE DISCOMFORT SHE IS ABLE TO AMBULATE BUT WITH SOME DISCOMFORT. Allergies: Coded Allergies: No Known Allergies (Unverified Allergy, Unknown, 07/20/24) No Known Drug Allergies (Unverified Allergy, Unknown, 04/08/17) Home Meds Active Scripts Oxycodone HCl/Acetaminophen (Percocet 5-325 mg Tablet) 1 Each Tablet, 1 EACH PO Q6H for pain, #16 TAB 0 Refills Prov:KIERA TRUONG MD 11/05/22 Naproxen (Naprosyn) 500 Mg Tablet, 500 MG PO BIDPC for 10 Days, #20 TAB 0 Refills Prov:KIERA TRUONG MD 11/05/22 Cyclobenzaprine HCl (Flexeril) 10 Mg Tab, 10 MG PO TID for muscle sstiffness, #14 TAB 0 Refills Prov:KIERA TRUONG MD 11/05/22 Reported Medications Pantoprazole Sodium (Protonix) 40 Mg Ectab, 40 MG PO AM, TAB.EC 02/17/24 Aspirin (ASPIRIN 81 MG ECTAB) 81 Mg Ectab, 81 MG PO DAILY, TAB.EC 02/17/24 Multivit-Min/Iron/FA/Vit K/Lut (Centrum Silver Women Tablet) 8 Mg Iron-400 Mcg- 50 Mcg-300 Mcg Tablet, 1 EACH PO AM, TAB 02/17/24 Clonidine HCl (Clonidine HCl) 0.1 Mg Tablet, 0.1 MG PO Q8H PRN for INCREASED BLOOD PRESSURE, TAB 02/17/24 Losartan Potassium (Losartan Potassium) 100 Mg Tablet, 100 MG PO AM, TAB 02/17/24 Hydrochlorothiazide (Hydrochlorothiazide) 25 Mg Tablet, 25 MG PO AM, TAB 02/17/24 Metoprolol Tartrate (Metoprolol Tartrate) 25 Mg Tablet, 25 MG PO BID, TAB 02/17/24 Rosuvastatin Calcium (Rosuvastatin Calcium) 10 Mg Tablet, 10 MG PO HS, TAB 12/22/23 Glipizide (Glipizide ER) 5 Mg Tab.er.24, 5 MG PO DAILYBKFST 12/22/23 Metformin HCl (Metformin HCl) 1,000 Mg Tablet, 1000 MG PO BIDMEALS, TAB 12/22/23 Past Medical History Past Medical History: Diabetes-Type II, Hypertension Medical History Other: BACK PAIN Past Surgical History: None Surgical History Other: RT KNEE SX Female( History) History: Not Applicable ROS Dictation CONSTITUTIONAL: NO CHILLS, NO FEVER, NO WEAKNESS, NO DIAPHORESIS, NO MALAISE. HEAD/FACE: NO SIGNS OF TRAUMA. EENT: NO EYE PAIN, NO BLURRED VISION, NO TEARING, NO DOUBLE VISION, NO EAR PAIN, NO EAR DISCHARGE, NO NOSE PAIN, NO NASAL CONGESTION, NO THROAT PAIN, NO THROAT SWELLING, NO MOUTH PAIN. RESPIRATORY: NO COUGH, NO ORTHOPNEA, NO SOB, NO STRIDOR, NO WHEEZING. CARDIOVASCULAR: NO CHEST PAIN, NO EDEMA, NO PALPITATIONS, NO SYNCOPE. GASTROINTESTINAL/ABDOMINAL: NO ABDOMINAL PAIN, NO CONSTIPATION, NO DIARRHEA, NO NAUSEA, NO VOMITING. GENITOURINARY: NO ABNORMAL DISCHARGE, NO DYSURIA, NO FREQUENT URINATION, NO HEMATURIA. NO COMPLAINTS OF PAIN IN THE GENITALS. MUSCULOSKELETAL: NO BACK PAIN, NO GOUT, JOINT PAIN, NO JOINT SWELLING, MUSCLE PAIN, NO MUSCLE STIFFNESS, NO NECK PAIN. INTEGUMENTARY: NO CHANGE IN COLOR, NO CHANGE IN HAIR/NAILS, NO DRYNESS, NO LESION, NO LUMPS, NO RASH. NEUROLOGICAL/PSYCH: NO ANXIETY, NOT DEPRESSED, NO EMOTIONAL PROBLEM, NO HEADACHE, NO NUMBNESS, NO PRE-EXISTING DEFICIT, NO HISTORY OF SEIZURES, NO TREMORS, NO WEAKNESS. HEMATOLOGIC/LYMPHATIC: NOT ANEMIC, NO HISTORY OF BLOOD CLOTS, NO APPARENT BLEEDING, NO BRUISING, GLANDS NOT SWOLLEN. ALL SYSTEMS NEGATIVE, EXCEPT NOTED. Results Laboratory and Microbiology Labs Reviewed?: Yes EKG/XRAY/US/CT/MRI X-RAY Comment X-RAY LEFT KNEE- NAD MDM MDM: DIFFERENTIAL DIAGNOSIS: FALL, KNEE STRAIN, KNEE CONTUSION, RATIONALE: TESTS CONSIDERED AND ORDERED SECONDARY TO SHARED DECISION MAKING INCLUDE: PREVIOUS OUTSIDE RECORDS REVIEWED: OLD ER VISITS. RISK OF COMPLICATION AND/OR MORBIDITY OR MORTALITY OF PATIENT MANAGEMENT: NONE MEDICATIONS-PER MEDICATION RECONCILIATION NEED FOR HOSPITALIZATION: PATIENT DOES NOT MEET CRITERIA FOR HOSPITALIZATION. NEED FOR EMERGENCY MAJOR/MINOR SURGERY: NO PATIENT IS A 69-YEAR-OLD FEMALE COMING IN COMPLAINING OF KNEE PAIN. X-RAY DID NOT DISCLOSE ACUTE FINDINGS. PATIENT WILL BE DISCHARGED IN STABLE CONDITION WITH A KNEE IMMOBILIZER IN PLACE. I DID ADVISED HER APPROPRIATE FOLLOW UP WITH PCP FOR ONGOING EVALUATION AND MANAGEMENT. ED Course Orders Procedure Category Date Status Time Knee 3vws Lt RAD 06/01/25 Taken 11:21 Knee Immobilizer TIM 06/01/25 In Process 12:18 Vital Signs Date Time Temp Pulse Resp B/P (MAP) Pulse Ox O2 Delivery O2 Flow Rate FiO2 06/01/25 11:20 98.4 72 18 141/72 98 Room Air* 0 21 06/01/25 11:20 98.4 72 18 141/72 98 DX & DISP Disposition: Discharge Departure Impression: Primary Impression: Knee contusion Condition: Stable Scripts Diclofenac Sodium (Voltaren Arthritis Pain) 1 % Gel..gram. 5 GM TP BID for 7 Days, #1 TUBE Prov: DHARA CHAUDHRY MD 06/01/25 Additional Instructions: FOLLOW-UP WITH PRIMARY CARE PROVIDER IN 1 TO 2 DAYS. TAKE MEDICATIONS DIRECTED HERE IN THE EMERGENCY ROOM. OKAY TO CONTINUE HOME MEDICATIONS UNLESS OTHERWISE DISCUSSED DURING YOUR VISIT IN THE EMERGENCY ROOM TODAY. RETURN TO YOUR NEAREST EMERGENCY ROOM IF SYMPTOMS WORSEN OR IF THERE IS NO IMPROVEMENT. CALL 911 IF YOU NEED IMMEDIATE ASSISTANCE. TAKE TYLENOL [id number] N EEDED AND IF NO CONTRAINDICATIONS ARE PRESENT. INCREASE ORAL HYDRATION. A WOUND CULTURE OR URINE CULTURE WAS ORDERED HERE IN THE EMERGENCY ROOM DEPARTMENT PLEASE FOLLOW-UP WITH PRIMARY CARE PROVIDER AND ADVISE THEM TO GET REPORTS FROM OUR FACILITY. IF YOU HAD ANY NACHO WRAP/SPLINTS THAT WERE APPLIED HERE, PLEASE DO NOT REMOVE THEM UNTIL YOU SEE YOUR PRIMARY CARE OR SPECIALTY. REFERRALS: Referrals: GUERDA CHOPRA MD (PCP) Time of Disposition: 12:21 DHARA CHAUDHRY MD Jun 01, 2025 12:21
--- NOTE | 2025-06-01 12:37 | NUR ---
APPLIED LEFT KNEE IMMOBILIZER, PT TOLERATED WELL.
[2025-06-01 13:00] VITALS: BP 137/67; PULSE 68; RESP 18; TEMP 98.4; O2SAT 98
[2025-06-01] MEDS ORDERED: DICL20GE TP (13:00)
--- NOTE | 2025-06-01 13:02 | NUR ---
DISCHARGED VIA WHEELCHAIR
--- NOTE | 2025-06-01 13:36 | HMCIMG ---
EXAM: CR right Knee, 4 View. CLINICAL HISTORY: FALL COMPARISON: None provided. FINDINGS: Suspected nondisplaced, potentially an intra-articular fracture involving the entire length of the patella. Large knee joint effusion. Mild prepatellar/infrapatellar bursitis. There is medial compartment predominant moderate to severe tricompartmental left knee joint osteoarthritis. IMPRESSION: 1. Suspected nondisplaced patella fracture, potentially intra-articular. 2. Large knee joint effusion. /[place]
== END 2025-06-01 13:03 | disposition home or self-care (01) ==
LOC: EDH 11:14
DX: S80.02XA Contusion of left knee, initial encounter (principal); E11.9 Type 2 diabetes mellitus without complications; I10 Essential (primary) hypertension; Z79.82 Long term (current) use of aspirin; Z79.899 Other long term (current) drug therapy; W01.0XXA Fall on same level from slipping, tripping and stumbling without subsequent striking against object, initial encounter; Y93.89 Activity, other specified; Y92.89 Other specified places as the place of occurrence of the external cause; Y99.8 Other external cause status
CPT/HCPCS: 29505; 73562; 99283